=== PATIENT | male | born 1985 | race Caucasian/White ===

== ENCOUNTER 2019-08-16 22:05 | Emergency (ER) | payer SELFPAY ==
[~2019-08-16] VITALS: Ht 175.3 cm; Wt 68.0 kg
[2019-08-16 22:09] VITALS: BP 156/70
--- NOTE | 2019-08-16 22:09 | NUR ---
ED Nurse Note: Patient brought in by [id number] from [facility] c/o "crawling bugs all over his body. As per patient he took meth yesterday. No SOB. Breathing even and unlabored. VSS
[2019-08-16] MEDS ORDERED: LORazepam Inj 2mg/ml 1ml ONE (22:13)
[2019-08-16] MEDS ORDERED: DiphenhydrAMINE 50mg/ml Inj ONE (22:14)
[2019-08-16] MEDS ORDERED: Haloperidol 5mg/ml Inj ONE (22:14)
[2019-08-16] MEDS ORDERED: LORazepam Inj 2mg/ml 1ml IM ONE (22:15)
[2019-08-16] MEDS ORDERED: DiphenhydrAMINE 50mg/ml Inj IM ONE (22:15)
[2019-08-16] MEDS ORDERED: Haloperidol 5mg/ml Inj IM ONE (22:15)
--- NOTE | 2019-08-17 00:30 | NUR ---
ED Nurse Note: Pt seen sleeping quietly in bed. No SOB. Breathing even and unlabored. VSS.
--- NOTE | 2019-08-17 01:36 | Emergency Room Report ---
History of Present Illness General Chief Complaint: Behavioral Complaint Source: Patient Present Illness HPI 33-year-old male history of methamphetamine abuse presents with altered mental status patient reports bugs crawling all over his arms, aggravated by methamphetamine abuse, alleviated by not utilizing meth, severity is severe, constant, symptoms started prior to arrival, patient was brought in by EMS for evaluation. Allergies: Coded Allergies: No Known Allergies (Unverified , 08/16/19) Patient History Limited by: medical condition - Currently under the influence Past Medical History: see triage record Social History: Reports: drug use - meth abuse Reviewed Nursing Documentation: PMH: Agreed; PSxH: Agreed Review of Systems All Other Systems: limited - Currently under the influence Physical Exam Vital Signs Date Time Temp Pulse Resp B/P (MAP) Pulse Ox O2 Delivery O2 Flow Rate FiO2 08/16/19 22:09 98.2 110 20 156/70 (98) 98 Room Air Sp02 EP Interpretation: reviewed, normal General Appearance: alert, other - Currently agitated Head: normocephalic, atraumatic Eyes: bilateral eye PERRL, bilateral eye EOMI ENT: uvula midline, moist mucus membranes Neck: supple, thyroid normal, supple/symm/no masses Respiratory: lungs clear, no respiratory distress, no retraction, no accessory muscle use Cardiovascular #1: normal peripheral pulses, no edema, no gallop, no murmur, tachycardia Gastrointestinal: non tender, soft, no guarding, no rebound Musculoskeletal: normal inspection Neurologic: alert, oriented x3 Psychiatric: mood/affect normal Skin: no rash, warm/dry Medical Decision Making Diagnostic Impression: Primary Impression: Methamphetamine abuse ER Course 33-year-old male presents with meth abuse, patient initially agitated, given sedation cocktail Patient back to baseline Patient discharged. Last Vital Signs Date Time Temp Pulse Resp B/P (MAP) Pulse Ox O2 Delivery O2 Flow Rate FiO2 08/16/19 22:09 98.2 89 20 156/70 98 Room Air Disposition: HOME, SELF-CARE Condition: Stable Referrals: NOT CHOSEN IPA/,REFERRING (PCP) [facility] Patient Instructions: Stimulant Use Disorder-Methamphetamines, Self- Destructive Behavior Additional Instructions: The patient was provided with discharge instructions, notified to follow-up with a primary care doctor and or specialist in the next 24-48 hours, and to return to the ED if they have worsening of their symptoms. Please note that this report is being documented using DRAGON technology. This can lead to erroneous entry secondary to incorrect interpretation by the dictating instrument. Jean White MD Aug 17, 2019 01:36
--- NOTE | 2019-08-17 04:00 | NUR ---
HAND-OFF: Report given to Nuvia VILLAFUERTE. Pt seen sleeping in bed. No SOB. No new further order. Endorsed plan of care.
[2019-08-17 04:45] VITALS: BP 140/84
--- NOTE | 2019-08-17 05:01 | NUR ---
ED Nurse Note: sandwich and beverages offered and provided.
[2019-08-17 05:27] VITALS: BP 132/76
--- NOTE | 2019-08-17 05:27 | NUR ---
ER DISCHARGE NOTE: Patient is cleared to be discharged per ERMD, pt is aox4, on room air, with stable vital signs. pt was given dc instructions, pt was able to verbalize understanding, pt id band removed without complications. pt is able to ambulate with steady gait. pt took all belongings.
[2019-08-18] MEDS ORDERED: NKM (13:40)
== END 2019-08-17 05:27 | disposition home or self-care (01) ==
LOC: EDBD 22:05 → EMR 22:17
DX: F15.10 Other stimulant abuse, uncomplicated (principal)
CPT/HCPCS: 96372; 99283; J1200; J1630

== ENCOUNTER 2019-08-18 13:29 | Emergency (ER) | payer OTHER ==
[~2019-08-18] VITALS: Ht 172.7 cm; Wt 62.1 kg
--- NOTE | 2019-08-18 13:35 | NUR ---
sitter at bedside
[2019-08-18 13:36] VITALS: BP 106/71
--- NOTE | 2019-08-18 13:36 | NUR ---
ED Nurse Note: PT FROM STREET WALKED IN DUE TO SUBTANCE USE PF METH AND ALCOHOL. LAST USE WAS YESTERDAY. NOTED VERY MILD HAND TREMORS. PT ALSO SI AND STATES HE WANTS TO HURT HIMSELF BY HANGING. ALSO C/O AUDITORY HALLUCINATIONS. AAO X4, AMBULATORY.
[2019-08-18] MEDS ORDERED: NKM (13:40)
--- NOTE | 2019-08-18 14:07 | Emergency Room Report ---
History of Present Illness General Chief Complaint: Substance Abuse Source: Patient (Ana Morales) Present Illness HPI 33-year-old male presents to the emergency department complaining of increase in his depression and having suicidal ideations after voices in his head are telling him to harm himself. Patient reports he also is an IV meth user and alcoholic. Patient reports that he typically does approximately $20 worth of meth every day for the past year and he drinks a pint of liquor every 2 days. Patient denies history of seizures or alcohol withdrawals. Patient is currently complaining of generalized muscle spasms. Patient states the voices in his head are telling him to hang himself he states that he has never had auditory hallucinations in the past he is currently under the care of a psychiatric provider for which he has not seen in over a month who recently started him on Prozac and gabapentin. He reports being through several detox programs in the past. Denies chest pain, shortness of breath, sudden onset headache, abdominal pain/tenderness, fevers or chills. Denies HI. (Ana Morales) Allergies: Coded Allergies: No Known Allergies (Unverified , 08/16/19) Patient History Past Medical History: see triage record Past Surgical History: none Pertinent Family History: none Social History: Reports: alcohol use, drug use Reviewed Nursing Documentation: PMH: Agreed; PSxH: Agreed (Ana Morales) Nursing Documentation-PMH Past Medical History: No History, Except For Hx Cardiac Problems: No - Hept C, Bipolar Hx Hypertension: No Hx Pacemaker: No Hx Asthma: No Hx COPD: No Hx Diabetes: No Hx Cancer: No Hx Gastrointestinal Problems: No Hx Dialysis: No Hx Neurological Problems: No Hx Cerebrovascular Accident: No Hx Seizures: No (Ana Morales) Review of Systems All Other Systems: negative except mentioned in HPI (Ana Morales) Physical Exam Vital Signs Date Time Temp Pulse Resp B/P (MAP) Pulse Ox O2 Delivery O2 Flow Rate FiO2 08/18/19 13:36 97.3 100 19 106/71 (83) 96 Room Air Sp02 EP Interpretation: reviewed, normal General Appearance: no apparent distress, alert, GCS 15, non-toxic, other - Disheveled Head: normocephalic, atraumatic Eyes: bilateral eye normal inspection, bilateral eye PERRL ENT: hearing grossly normal, normal voice Neck: full range of motion Respiratory: chest non-tender, lungs clear, normal breath sounds, speaking full sentences Cardiovascular #1: regular rate, rhythm Gastrointestinal: normal bowel sounds, non tender, soft, non-distended, no guarding Musculoskeletal: back normal, gait/station normal, normal range of motion, non- tender Neurologic: alert, oriented x3, responsive, motor strength/tone normal, sensory intact, speech normal, grossly normal Psychiatric: judgement/insight normal, depressed affect, anxious Skin: no rash, other - Grossly contaminated however no evidence of acute infections, open wounds or bleeding. (Ana Morales) Medical Decision Making PA Attestation Dr. Flores is my supervising Physician whom patient management has been discussed with. (Ana Morales) Diagnostic Impression: Primary Impression: Behavioral disorder Additional Impressions: History of depression Methamphetamine abuse ER Course 33-year-old male presents to the emergency department complaining of increase in his depression and having suicidal ideations after voices in his head are telling him to harm himself. Patient reports he also is an IV meth user and alcoholic. Patient reports that he typically does approximately $20 worth of meth every day for the past year and he drinks a pint of liquor every 2 days. Patient denies history of seizures or alcohol withdrawals. Patient is currently complaining of generalized muscle spasms. Patient states the voices in his head are telling him to hang himself he states that he has never had auditory hallucinations in the past he is currently under the care of a psychiatric provider for which he has not seen in over a month who recently started him on Prozac and gabapentin. He reports being through several detox programs in the past. Denies chest pain, shortness of breath, sudden onset headache, abdominal pain/tenderness, fevers or chills. Denies HI. Pt is anxious and restless affect. Ddx considered but are not limited to OD, SI/HI, psychosis, UTI, intoxication, drug induced psychosis Vital signs: are WNL, pt. is afebrile H&PE are most consistent with behavioral/mental health issue ORDERS: -CBC, CMP: Unremarkable - Ck: mildly elevated at 446 -Serum ETOH: WNL less than 3 -UA: negative for infection see results attached. -UDS: Positive for Meth and THC -Salicylates and Acetaminophen - WNL/ no acute intoxication. ED INTERVENTIONS: - 1mg Ativan IM -2 Liters NS Bolus -KcL PO 20Meq - DISPOSITION: This patient is medically cleared for psychiatric evaluation and/ or placement as necessary. Labs Test 08/18/19 14:40 White Blood Count 6.5 K/UL (4.8-10.8) Red Blood Count 4.60 M/UL (4.70-6.10) Hemoglobin 13.6 G/DL (14.2-18.0) Hematocrit 41.0 % (42.0-52.0) Mean Corpuscular Volume 89 FL (80-99) Mean Corpuscular Hemoglobin 29.5 PG (27.0-31.0) Mean Corpuscular Hemoglobin Concent 33.2 G/DL (32.0-36.0) Red Cell Distribution Width 12.6 % (11.6-14.8) Platelet Count 337 K/UL (150-450) Mean Platelet Volume 5.4 FL (6.5-10.1) Neutrophils (%) (Auto) 65.4 % (45.0-75.0) Lymphocytes (%) (Auto) 17.3 % (20.0-45.0) Monocytes (%) (Auto) 14.9 % (1.0-10.0) Eosinophils (%) (Auto) 1.6 % (0.0-3.0) Basophils (%) (Auto) 0.7 % (0.0-2.0) Sodium Level 136 MMOL/L (136-145) Potassium Level 3.6 MMOL/L (3.5-5.1) Chloride Level 102 MMOL/L (98-107) Carbon Dioxide Level 28 MMOL/L (21-32) Anion Gap 6 mmol/L (5-15) Blood Urea Nitrogen 6 mg/dL (7-18) Creatinine 0.7 MG/DL (0.55-1.30) Estimat Glomerular Filtration Rate > 60 mL/min (>60) Glucose Level 109 MG/DL (74-106) Calcium Level 8.6 MG/DL (8.5-10.1) Total Bilirubin 0.3 MG/DL (0.2-1.0) Aspartate Amino Transf (AST/SGOT) 57 U/L (15-37) Alanine Aminotransferase (ALT/SGPT) 104 U/L (12-78) Alkaline Phosphatase 86 U/L (46-116) Total Creatine Kinase 446 U/L (26-308) Total Protein 7.2 G/DL (6.4-8.2) Albumin 3.1 G/DL (3.4-5.0) Globulin 4.1 g/dL Albumin/Globulin Ratio 0.8 (1.0-2.7) Salicylates Level 1.2 ug/mL (2.8-20) Urine Opiates Screen Negative (NEGATIVE) Acetaminophen Level < 2 MCG/ML (10-30) Urine Barbiturates Screen Negative (NEGATIVE) Phencyclidine (PCP) Screen Negative (NEGATIVE) Urine Amphetamines Screen Positive (NEGATIVE) Urine Benzodiazepines Screen Negative (NEGATIVE) Urine Cocaine Screen Negative (NEGATIVE) Urine Marijuana (THC) Screen Positive (NEGATIVE) Serum Alcohol < 3 mg/dL (Ana Morales) ER Course Signed out to me. He has a history of methamphetamine abuse and felt suicidal. He is willing to go voluntarily to a psychiatric hospital. Patient is medically clear to be transferred to [facility] psychiatric facility. (Hugo Guerrero MD) EKG Diagnostic Results EP Interpretation: Dr. flores Rate: normal - 72bpm Rhythm: NSR ST Segments: no acute changes ASA given to the pt in ED: No PA Scribe Text This Interpretation was scribed by GENA Morales. (Ana Morales) Last Vital Signs Date Time Temp Pulse Resp B/P (MAP) Pulse Ox O2 Delivery O2 Flow Rate FiO2 08/18/19 13:36 97.3 100 19 106/71 (83) 96 Room Air (Ana Morales) Status: improved (Hugo Guerrero MD) Disposition: XFER TO PSYCH HOSP/UNIT Condition: Stable Signed Out To: Dr. Guerrero (Ana Morales) Ana Morales Aug 18, 2019 14:07 Hugo Guerrero MD Aug 19, 2019 04:38
--- NOTE | 2019-08-18 14:10 | NUR ---
ED Nurse Note: BELONGINGS PLACED ON PSYCH LOCKER #2.
--- NOTE | 2019-08-18 14:15 | NUR ---
ED Nurse Note: PRIMARY RN SITTER.
--- NOTE | 2019-08-18 14:40 | NUR ---
ED Nurse Note: COLLECTED URINE/BLOOD THEN SENT.
--- NOTE | 2019-08-18 14:46 | NUR ---
ED Nurse Note: PT REPORTS MUSCLE SPASMS. NO RESPIRATORY DISTRESS. XIAO AT THE BED SIDE.
[2019-08-18 15:11] LABS: BASOPHILS % (AUTO) 0.7 % (0.0-2.0); EOSINOPHILS % (AUTO) 1.6 % (0.0-3.0); HEMOGLOBIN 13.6 G/DL (14.2-18.0); LYMPHOCYTES % (AUTO) 17.3 % (20.0-45.0); MEAN CORPUSCULAR VOLUME 89 FL (80-99); MONOCYTES % (AUTO) 14.9 % (1.0-10.0); NEUTROPHILS % (AUTO) 65.4 % (45.0-75.0); PLATELET COUNT 337 K/UL (150-450); RED CELL DISTRIBUTION WIDTH 12.6 % (11.6-14.8); WHITE BLOOD COUNT 6.5 K/UL (4.8-10.8)
[2019-08-18 15:22] VITALS: BP 119/73
[2019-08-18 15:25] LABS: ANION GAP 6 mmol/L (5-15); BLOOD UREA NITROGEN 6 mg/dL (7-18); CALCIUM 8.6 MG/DL (8.5-10.1); CARBON DIOXIDE 28 MMOL/L (21-32); CHLORIDE 102 MMOL/L (98-107); CREATININE 0.7 MG/DL (0.55-1.30); POTASSIUM 3.6 MMOL/L (3.5-5.1); SODIUM 136 MMOL/L (136-145)
[2019-08-18 15:29] LABS: ALANINE AMINOTRANSFERASE 104 U/L (12-78); ALBUMIN 3.1 G/DL (3.4-5.0); ALBUMIN/GLOBULIN RATIO 0.8 (1.0-2.7); ALKALINE PHOSPHATASE 86 U/L (46-116); ASPARTATE AMINO TRANSFERASE 57 U/L (15-37); BILIRUBIN,TOTAL 0.3 MG/DL (0.2-1.0)
[2019-08-18 15:31] LABS: CREATINE KINASE 446 U/L (26-308)
[2019-08-18] MEDS ORDERED: LORazepam Inj 2mg/ml 1ml IM ONE (16:00)
--- NOTE | 2019-08-18 16:20 | NUR ---
ED Nurse Note: ELEAZAR GEORGE AT THE BED SIDE.
--- NOTE | 2019-08-18 17:30 | NUR ---
ED Nurse Note: DINNER PROVIDED TO PT AND CONSUMED 100% OF FOOD. ELEAZAR GEORGE AT THE BED SIDE.
[2019-08-18 17:35] VITALS: BP 123/70
--- NOTE | 2019-08-18 19:12 | NUR ---
HAND-OFF: Report given to SIXTO VILLAFUERTE.
--- NOTE | 2019-08-18 20:30 | NUR ---
ED Nurse Note: Patient is in the room, sitter by bed side. Patient calm and cooperative.
[2019-08-18 23:45] VITALS: BP 120/70
--- NOTE | 2019-08-18 23:45 | NUR ---
ED Nurse Note: report received from CHRISTO Mancia . pt is in bed resting. no acute distress is noted at this time. sitter is by bedside.
--- NOTE | 2019-08-19 01:13 | NUR ---
ED Nurse Note: Report given to CHRISTO Hester from [facility]
--- NOTE | 2019-08-19 01:19 | NUR ---
ED Nurse Note: pt in bed with eyes closed. appears to be sleeping. no acute distress is noted.
[2019-08-19 03:18] VITALS: BP 103/63
--- NOTE | 2019-08-19 03:18 | NUR ---
ED Nurse Note: pt in bed, awake. pt stated he is hungry. sandwich and beverages given,
[2019-08-19 04:28] VITALS: BP 110/68
--- NOTE | 2019-08-19 04:28 | NUR ---
ED Nurse Note: pt was picked up by [facility] ambulance unit # [id number] and was transfered to [facility] via gurney in stable condition. IV site is removed.
--- NOTE | 2019-08-20 12:49 | Cardiology Report ---
APPROVED REPORT EKG Measurement Heart [id number] Normal sinus rhythm with sinus arrhythmia Normal ECG
== END 2019-08-19 04:28 ==
LOC: EMR 14:17
DX: R45.851 Suicidal ideations (principal); F32.9 Major depressive disorder, single episode, unspecified; F15.10 Other stimulant abuse, uncomplicated; F91.9 Conduct disorder, unspecified; B19.20 Unspecified viral hepatitis C without hepatic coma; F12.10 Cannabis abuse, uncomplicated; F10.20 Alcohol dependence, uncomplicated
CPT/HCPCS: 36415; 80053; 80307; 82550; 85025; 93005; 96360; 96361; 96372; G0480; G0481; Z7502; 99284; J7030; J8499

== ENCOUNTER 2020-02-20 22:40 | Emergency (ER) | payer OTHER ==
[~2020-02-20] VITALS: Ht 172.7 cm; Wt 59.0 kg
[~2020-02-20 22:40] MED LIST: NKM
[2020-02-20 23:00] VITALS: BP 114/54
--- NOTE | 2020-02-20 23:13 | Emergency Room Report ---
History of Present Illness General Chief Complaint: Behavioral Complaint Source: Patient Present Illness HPI Disclaimer: Please note that this report is being documented using Flash[employer] technology. This can lead to erroneous entry secondary to incorrect interpretation by the dictating instrument. HPI: 34-year-old male presents for evaluation of aggressive behavior. He states he has been getting into fights with people all day and is feeling manic. He has a history of bipolar disorder and depression. Previously taking Prozac, Zyprexa and Cogentin but not for several days. He follows with a Dr. Koch in [place]. He denies hearing any voices. He reports that he was feeling suicidal earlier standing near a bridge contemplating whether or not he should jump. He also is very angry at "gang bangers" and said he would like to shoot them. He does not have a firearm. Denies any self-harm prior to arrival. Uses meth regularly but denies use today. Use alcohol regularly in the past but states he is no longer drinking. States he was seen in the hospital earlier today and discharged. PMH: Depression, bipolar disorder PSH: Appendectomy, hernia repair Allergies: Denied Social Hx: Meth and alcohol abuse Allergies: Coded Allergies: No Known Allergies (Unverified , 08/16/19) COVID-19 Screening Contact w/high risk pt: No Recent Travel to affected area: No Experienced COVID-19 symptoms?: No Nursing Documentation-PMH Hx Cardiac Problems: No - Hept C, Bipolar Hx Hypertension: No Hx Pacemaker: No Hx Asthma: No Hx COPD: No Hx Diabetes: No Hx Cancer: No Hx Gastrointestinal Problems: No Hx Dialysis: No History Of Psychiatric Problem: Yes - bipolar, personality disorder, schizophrenia Hx Neurological Problems: No Hx Cerebrovascular Accident: No Hx Seizures: No Review of Systems All Other Systems: negative except mentioned in HPI Physical Exam Vital Signs Date Time Temp Pulse Resp B/P (MAP) Pulse Ox O2 Delivery O2 Flow Rate FiO2 02/20/20 22:46 98.1 98 18 114/54 (74) 98 Room Air General: Awake and alert, no acute distress HEENT: NC/AT. EOMI. Cardiovascular: RRR. S1 and S2 normal. No murmur appreciated Resp: Normal work of breathing. No cough, wheezing or crackles appreciated Abdomen: Abdomen is soft, nondistended. Nontender Skin: Intact. No abrasions, laceration or rash over the exposed skin MSK: Normal tone and bulk. Moving all extremities. No obvious deformity. Neuro: Awake and alert. Mentating appropriately. Mildly agitated though cooperative and redirectable. Answering questions appropriately. Reports feeling angry but not specifically suicidal. He reports hatred towards gang members but this is generally not specific for any particular person Medical Decision Making Diagnostic Impression: Primary Impression: Methamphetamine abuse ER Course 34-year-old male presents for evaluation of behavioral changes and suicidality. Currently, he is not feeling suicidal but states he was contemplated jumping off a bridge earlier. His threats to shoot gang members are nonspecific and longstanding according to patient. He does not have access to a firearm. Possible substance abuse or medication withdrawal as he has been without his Prozac and Zyprexa for several days. We will give him his medications and order screening labs. Will monitor in the emergency department. Laboratory Tests Test 02/20/20 23:00 02/20/20 23:25 Urine Opiates Screen Negative (NEGATIVE) Urine Barbiturates Screen Negative (NEGATIVE) Phencyclidine (PCP) Screen Negative (NEGATIVE) Urine Amphetamines Screen Positive (NEGATIVE) H Urine Benzodiazepines Screen Positive (NEGATIVE) H Urine Cocaine Screen Negative (NEGATIVE) Urine Marijuana (THC) Screen Positive (NEGATIVE) H White Blood Count 6.7 K/UL (4.8-10.8) Red Blood Count 3.95 M/UL (4.70-6.10) L Hemoglobin 11.6 G/DL (14.2-18.0) L Hematocrit 32.8 % (42.0-52.0) L Mean Corpuscular Volume 83 FL (80-99) Mean Corpuscular Hemoglobin 29.5 PG (27.0-31.0) Mean Corpuscular Hemoglobin Concent 35.5 G/DL (32.0-36.0) Red Cell Distribution Width 12.9 % (11.6-14.8) Platelet Count 224 K/UL (150-450) Mean Platelet Volume 5.5 FL (6.5-10.1) L Neutrophils (%) (Auto) 61.7 % (45.0-75.0) Lymphocytes (%) (Auto) 19.2 % (20.0-45.0) L Monocytes (%) (Auto) 15.1 % (1.0-10.0) H Eosinophils (%) (Auto) 3.0 % (0.0-3.0) Basophils (%) (Auto) 0.9 % (0.0-2.0) Sodium Level 138 MMOL/L (136-145) Potassium Level 4.1 MMOL/L (3.5-5.1) Chloride Level 102 MMOL/L (98-107) Carbon Dioxide Level 27 MMOL/L (21-32) Anion Gap 10 mmol/L (5-15) Blood Urea Nitrogen 29 mg/dL (7-18) H Creatinine 0.9 MG/DL (0.55-1.30) Estimated Glomerular Filtration Rate > 60 mL/min (>60) Glucose Level 89 MG/DL (74-106) Calcium Level 8.5 MG/DL (8.5-10.1) Total Bilirubin 0.3 MG/DL (0.2-1.0) Aspartate Amino Transferase (AST) 118 U/L (15-37) H Alanine Aminotransferase (ALT) 186 U/L (12-78) H Alkaline Phosphatase 122 U/L (46-116) H Total Protein 6.9 G/DL (6.4-8.2) Albumin 3.1 G/DL (3.4-5.0) L Globulin 3.8 g/dL Albumin/Globulin Ratio 0.8 (1.0-2.7) L Salicylates Level 0.9 ug/mL (2.8-20) L Acetaminophen Level < 2 MCG/ML (10-30) L Serum Alcohol < 3 mg/dL Reevaluation Time: 01:35 Last Vital Signs Date Time Temp Pulse Resp B/P (MAP) Pulse Ox O2 Delivery O2 Flow Rate FiO2 02/20/20 22:46 98.1 98 18 114/54 (74) 98 Room Air Reevaluation Impression Labs show elevations in liver function studies with a normal creatinine and electrolyte profile. No white count. Slight anemia with a hemoglobin 11.6. Toxicology positive for amphetamines, benzodiazepines, THC. Negative for alcohol, amphetamines and salicylates. Patient is sleeping comfortably after receiving his medications. Signed Out To: Dr. Severino Referrals: NON PHYSICIAN (PCP) Servando Flores MD February 20, 2020 23:13
[2020-02-20] MEDS ORDERED: DiphenhydrAMINE 25mg Tab ORAL ONE (23:15)
[2020-02-20] MEDS ORDERED: FLUoxetine 10mg cap ONE (23:41)
[2020-02-20 23:50] LABS: BASOPHILS % (AUTO) 0.9 % (0.0-2.0); HEMATOCRIT 32.8 % (42.0-52.0); HEMOGLOBIN 11.6 G/DL (14.2-18.0); LYMPHOCYTES % (AUTO) 19.2 % (20.0-45.0); MEAN CORPUSCULAR VOLUME 83 FL (80-99); MONOCYTES % (AUTO) 15.1 % (1.0-10.0); NEUTROPHILS % (AUTO) 61.7 % (45.0-75.0); PLATELET COUNT 224 K/UL (150-450); RED BLOOD COUNT 3.95 M/UL (4.70-6.10); RED CELL DISTRIBUTION WIDTH 12.9 % (11.6-14.8); WHITE BLOOD COUNT 6.7 K/UL (4.8-10.8)
[2020-02-21 00:03] LABS: ANION GAP 10 mmol/L (5-15); BLOOD UREA NITROGEN 29 mg/dL (7-18); CALCIUM 8.5 MG/DL (8.5-10.1); CARBON DIOXIDE 27 MMOL/L (21-32); CHLORIDE 102 MMOL/L (98-107); CREATININE 0.9 MG/DL (0.55-1.30); POTASSIUM 4.1 MMOL/L (3.5-5.1); SODIUM 138 MMOL/L (136-145)
[2020-02-21 00:08] LABS: ALANINE AMINOTRANSFERASE 186 U/L (12-78); ALBUMIN 3.1 G/DL (3.4-5.0); ALBUMIN/GLOBULIN RATIO 0.8 (1.0-2.7); ALKALINE PHOSPHATASE 122 U/L (46-116); ASPARTATE AMINO TRANSFERASE 118 U/L (15-37); BILIRUBIN,TOTAL 0.3 MG/DL (0.2-1.0)
[2020-02-21 03:00] VITALS: BP 121/61
[2020-02-21 07:31] VITALS: BP 113/71
== END 2020-02-21 09:55 | disposition home or self-care (01) ==
LOC: EMR 22:57
DX: F15.10 Other stimulant abuse, uncomplicated (principal); F31.9 Bipolar disorder, unspecified; F32.9 Major depressive disorder, single episode, unspecified; Z90.89 Acquired absence of other organs; B19.20 Unspecified viral hepatitis C without hepatic coma; F20.9 Schizophrenia, unspecified
CPT/HCPCS: 36415; 80053; 80307; 85025; G0480; G0481; Z7502; 99285